=== PATIENT | female | born 1940 | race Caucasian/White ===

== ENCOUNTER 2017-02-18 12:05 | Emergency (ER) | payer MEDICARE, OTHER ==
--- NOTE | 2017-02-18 12:59 | RAD ---
PA AND LATERAL VIEWS OF CHEST: Date: 02/18/17 HISTORY: Productive cough with green sputum. FINDINGS: Comparison made with exam dated 08/14/11. The heart size remains borderline. The lungs are well expanded without focal areas of consolidation, pneumothorax, or pleural effusions. There are degenerative changes in the spine. IMPRESSION: No radiographic evidence of acute cardiopulmonary process. POS: [facility]
== END 2017-02-18 13:02 | disposition home or self-care (01) ==
LOC: SCSER 12:05
DX: J10.1 Influenza due to other identified influenza virus with other respiratory manifestations (principal)
CPT/HCPCS: 71020